=== PATIENT | female | born 1945 | race Caucasian/White ===

== ENCOUNTER 2016-12-01 12:52 | Observation (INO) | payer MEDICARE, OTHER ==
[2016-12-01] VITALS (11 sets, daily range): BP systolic 90–138; BP diastolic 48–78; PULSE 72–112; RESP 16–20; TEMP 96.6–98.4; O2SAT 96–98
[~2016-12-01] VITALS: Ht 170.2 cm; Wt 62.1 kg
[2016-12-01] MEDS ORDERED: OCUVTAB4 PO (13:06)
[2016-12-01] MEDS ORDERED: LOSA25TA PO (13:06)
[2016-12-01] MEDS ORDERED: OMEP40CA2 PO (13:06)
[2016-12-01] MEDS ORDERED: ASPI81CH37 CHEW (13:06)
--- NOTE | 2016-12-01 13:26 | PD ---
HPI Chief Complaint: Chest Pain Time Seen by Provider: 13:00 Travel History International Travel<30 days: No Contact w/Intl Traveler<30days: No Traveled to known affect area: No History of Present Illness HPI C/O CHEST PRESSURE, MIDLINE, NONRADIATING, HAS HAD IT ALL DAY AND NOW SEEMS TO GET WORSE WITH DEEP BREATHS...DENIES COUGH/FEVER/DIAPHORESIS/N/V/...STATES THAT SHE HAS FIBROMUSCULAR DYSPLASIA AND HAS BEEN TOLD OF INCREASE RISK OF ANEURYSM...STATES FAMILY H/O PFSH Past Medical History Hypertension: Yes Medical other: Yes (FIBROMUSCULAR DS) Neurologic: Yes (NEUROPATHY) Past Surgical History Eye Surgery: Yes (X4) Hysterectomy: Yes Tonsillectomy: Yes Other Surgery: Yes (FIBROIDS) Social History Alcohol Use: No Tobacco Use: No Substance Use: No Allergies-Medications (Allergen,Severity, Reaction): Coded Allergies: Gantrisin (Verified Allergy, Unknown, 12/01/16) Sulfa (Verified Allergy, Unknown, 12/01/16) Reported Meds & Prescriptions Reported Meds & Active Scripts Active Reported Preservision Areds (Multiple Vitamins W/ Minerals) 1 Tab Unknown Dose PO DAILY Omeprazole 40 Mg Cap 40 Mg PO DAILY Losartan (Losartan Potassium) 25 Mg Tab 12.5 Mg PO DAILY Aspirin Low Dose (Aspirin) 81 Mg Chew 81 Mg CHEW DAILY Review of Systems Except as stated in HPI: all other systems reviewed are Neg Cardiovascular: Positive: Chest Pain or Discomfort Physical Exam Narrative GENERAL: SKIN: Warm and dry. HEAD: Atraumatic. Normocephalic. EYES: Pupils equal and round. No scleral icterus. No injection or drainage. ENT: No nasal bleeding or discharge. Mucous membranes pink and moist. NECK: Trachea midline. No JVD. CARDIOVASCULAR: Regular rate and rhythm. RESPIRATORY: No accessory muscle use. Clear to auscultation. Breath sounds equal bilaterally. GASTROINTESTINAL: Abdomen soft, non-tender, nondistended. Hepatic and splenic margins not palpable. MUSCULOSKELETAL: Extremities without clubbing, cyanosis, or edema. No obvious deformities. NEUROLOGICAL: Awake and alert. No obvious cranial nerve deficits. Motor grossly within normal limits. Five out of 5 muscle strength in the arms and legs. Normal speech. PSYCHIATRIC: Appropriate mood and affect; insight and judgment normal. Data Data Last Documented VS Vital Signs Date Time Temp Pulse Resp B/P Pulse Ox O2 Delivery O2 Flow Rate FiO2 12/01/16 15:43 80 18 97/48 98 12/01/16 14:07 Nasal Cannula 2 12/01/16 13:01 98.4 Orders Electrocardiogram (12/01/16 13:00) B-Type Natriuretic Peptide (12/01/16 13:00) Ckmb (Isoenzyme) Profile (12/01/16 13:00) Complete Blood Count With Diff (12/01/16 13:00) Comprehensive Metabolic Panel (12/01/16 13:00) D-Dimer (12/01/16 13:00) Prothrombin Time / Inr (Pt) (12/01/16 13:00) Act Partial Throm Time (Ptt) (12/01/16 13:00) Troponin I (12/01/16 13:00) Lipase (12/01/16 13:00) Chest, Single Ap (12/01/16 13:00) Ecg Monitoring (12/01/16 13:00) Bilateral Bp Monitoring (12/01/16 13:00) Iv Access Insert/Monitor (12/01/16 13:00) Oximetry (12/01/16 13:00) Oxygen Administration (12/01/16 13:00) Ct Pulmonary Angiogram (12/01/16 13:18) Ct Abd/Pel W Iv Contrast(Rout) (12/01/16 13:18) Morphine Inj (Morphine Inj) (12/01/16 13:45) Ondansetron Inj (Zofran Inj) (12/01/16 13:45) CKMB (12/01/16 14:15) CKMB% (12/01/16 14:15) Iohexol 350 Inj (Omnipaque 350 Inj) (12/01/16 16:06) Labs Laboratory Tests Test 12/01/16 12/01/16 13:15 14:15 White Blood Count 6.7 TH/MM3 Red Blood Count 4.40 MIL/MM3 Hemoglobin 13.1 GM/DL Hematocrit 39.6 % Mean Corpuscular Volume 90.0 FL Mean Corpuscular Hemoglobin 29.6 PG Mean Corpuscular Hemoglobin 32.9 % Concent Red Cell Distribution Width 13.5 % Platelet Count 248 TH/MM3 Mean Platelet Volume 8.4 FL Neutrophils (%) (Auto) 65.7 % Lymphocytes (%) (Auto) 18.0 % Monocytes (%) (Auto) 12.5 % Eosinophils (%) (Auto) 0.6 % Basophils (%) (Auto) 3.2 % Neutrophils # (Auto) 4.5 TH/MM3 Lymphocytes # (Auto) 1.2 TH/MM3 Monocytes # (Auto) 0.8 TH/MM3 Eosinophils # (Auto) 0.0 TH/MM3 Basophils # (Auto) 0.2 TH/MM3 CBC Comment DIFF FINAL Differential Comment Prothrombin Time 10.7 SEC Prothromb Time International 1.0 RATIO Ratio Activated Partial 27.3 SEC Thromboplast Time D-Dimer Quantitative (PE/DVT) 0.34 MG/L FEU B-Type Natriuretic Peptide 70 PG/ML Sodium Level 141 MEQ/L Potassium Level 4.7 MEQ/L Chloride Level 107 MEQ/L Carbon Dioxide Level 28.0 MEQ/L Anion Gap 6 MEQ/L Blood Urea Nitrogen 18 MG/DL Creatinine 0.83 MG/DL Estimat Glomerular Filtration 67 ML/MIN Rate Random Glucose 93 MG/DL Calcium Level 9.1 MG/DL Total Bilirubin 0.8 MG/DL Aspartate Amino Transf 17 U/L (AST/SGOT) Alanine Aminotransferase 23 U/L (ALT/SGPT) Alkaline Phosphatase 62 U/L Total Creatine Kinase 109 U/L Creatine Kinase MB 1.7 NG/ML Troponin I LESS THAN 0.02 NG/ML Total Protein 7.4 GM/DL Albumin 3.8 GM/DL Lipase 195 U/L [facility] Medical Decision Making Medical Screen Exam Complete: Yes Emergency Medical Condition: Yes Medical Record Reviewed: Yes Differential Diagnosis PE V AK V PNA V AORTIC DISSECTION/ANEURYSM Narrative Course PER CXR NO PNA, BASED ON CT NO PE, NO AORTIC DISSECTION/ANEURYSM NOTED. FIRST SET OF CARDIAC ENZYMES ARE NEG. WILL ADMIT TO [facility] FOR OBSERVATION CP R/O [place] Diagnosis Primary Impression: Chest pain, rule out acute myocardial infarction Condition: Stable Tigre Snyder MD Dec 01, 2016 13:26
[2016-12-01 13:33] LABS: AUTOMATED NEUTROPHIL # 4.5 TH/MM3 (1.8-7.7); BASOPHIL # 0.2 TH/MM3 (0-0.2); BASOPHIL % 3.2 % (0.0-2.0); EOSINOPHIL % 0.6 % (0.0-4.0); HEMATOCRIT 39.6 % (35.0-46.0); HEMO FLAGS DIFF FINAL; LYMPHOCYTE # 1.2 TH/MM3 (1.0-4.8); MEAN CORPUSCULAR HEMOGLOBIN 29.6 PG (27.0-34.0); MEAN CORPUSCULAR HGB CONC 32.9 % (32.0-36.0); MONO % 12.5 % (0.0-8.0); NEUT % 65.7 % (16.0-70.0); PLATELET COUNT 248 TH/MM3 (150-450); RED CELL DISTRIBUTION WIDTH 13.5 % (11.6-17.2); WHITE BLOOD COUNT 6.7 TH/MM3 (4.0-11.0)
[2016-12-01 13:44] LABS: APTT (PATIENT) 27.3 SEC (24.3-30.1); PROTHROMBIN TIME - PATIENT 10.7 SEC (9.8-11.6)
[2016-12-01] MEDS ORDERED: MORPHINE SULFATE 4 MG/ML INJ IV PUSH ONE (13:45)
[2016-12-01] MEDS ORDERED: ONDANSETRON HCL 4 MG/2 ML VIAL IV PUSH ONE (13:45)
--- NOTE | 2016-12-01 13:51 | RADHPO ---
EXAM DATE/TIME: 12/01/2016 13:42 [facility] COMPARISON: No previous studies available for comparison. INDICATIONS : Chest pains MEDICAL HISTORY : None. SURGICAL HISTORY : None. ENCOUNTER: Initial ACUITY: 2 days PAIN SCORE: 8/10 LOCATION: Bilateral chest FINDINGS: Portable AP view of the chest demonstrates a normal-sized cardiac silhouette. No effusion, consolidat ion, or pneumothorax is visualized. There is linear atelectasis versus scar at the left lung base. Th e bones and soft tissues demonstrate no acute abnormality. CONCLUSION: No acute cardiopulmonary abnormality is identified. Joselo Acosta MD on December 01, 2016 at 13:48 Board Certified Radiologist. This report was verified electronically.
[2016-12-01 14:58] LABS: CHLORIDE 107 MEQ/L (98-107); POTASSIUM 4.7 MEQ/L (3.5-5.1); SODIUM (NA) 141 MEQ/L (136-145)
[2016-12-01 15:02] LABS: ANION GAP 6 MEQ/L (5-15); BLOOD UREA NITROGEN 18 MG/DL (7-18)
[2016-12-01 15:05] LABS: ALT (GPT) 23 U/L (10-53); AST (GOT) 17 U/L (15-37); GLOMERULAR FILTRATION RATE 67 ML/MIN (>89)
[2016-12-01 15:07] LABS: TOTAL BILIRUBIN ADULT 0.8 MG/DL (0.2-1.0)
[2016-12-01 15:08] LABS: ALKALINE PHOSPHATASE 62 U/L (45-117); CREATINE KINASE 109 U/L (26-192)
[2016-12-01 15:20] LABS: CKMB 1.7 NG/ML (0.5-3.6)
--- NOTE | 2016-12-01 16:05 | RADHPO ---
EXAM DATE/TIME: 12/01/2016 15:23 [facility] COMPARISON: No previous studies available for comparison. INDICATIONS : Heaviness in chest and shortness of breath with inhalation. IV CONTRAST: 100 cc Omnipaque 350 (iohexol) IV RADIATION DOSE: 28.14 CTDIvol (mGy) MEDICAL HISTORY : Fibroids SURGICAL HISTORY : Hysterectomy. ENCOUNTER: Initial ACUITY: 2 days PAIN SCALE: 6/10 LOCATION: Bilateral chest TECHNIQUE: Volumetric scanning of the chest was performed using a pulmonary embolism protocol MIP images were re constructed. Using automated exposure control and adjustment of the mA and/or kV according to patien t size, radiation dose was kept as low as reasonably achievable to obtain optimal diagnostic quality images. FINDINGS: PULMONARY ARTERIES: Pulmonary arteries are visualized to the proximal subsegmental level without evidence for intralumina l filling defect to suggest pulmonary artery embolism. LUNGS: Mild biapical scarring. Minimal left lower lobe scarring. No significant focal parenchymal normality. PLEURAE: There is no pleural thickening or pleural effusion. MEDIASTINUM: There is good visualization of the great vessels of the middle mediastinum. No evidence of mediastin al or hilar adenopathy/mass. Trace pericardial effusion. MUSCULOSKELETAL: Within normal limits for patient age. MISCELLANEOUS: The visualized upper abdominal organs demonstrate no acute abnormality. CONCLUSION: 1. No CT evidence for pulmonary artery embolism to the subsegmental level. 2. Minimal biapical and left lower lobe scarring. 3. Otherwise, unremarkable CT examination of the thorax. Adan Wilder MD on December 01, 2016 at 15:58 Board Certified Radiologist. This report was verified electronically.
[2016-12-01] MEDS ORDERED: IOHEXOL 350 MG/ML 10 ML VIAL (for RAD DIAG) IV ONE (16:06)
--- NOTE | 2016-12-01 16:15 | RADHPO ---
EXAM DATE/TIME: 12/01/2016 15:23 [facility] COMPARISON: No previous studies available for comparison. INDICATIONS : Chest heaviness, and shortness of breath looking for dissection vs PE. IV CONTRAST: 100 cc Omnipaque 350 (iohexol) IV ; Cumulative dose for multiple exams. ORAL CONTRAST: No oral contrast ingested. RADIATION DOSE: 34.23 CTDIvol (mGy) ; Combined studies - Thorax/Abdomen/Pelvis MEDICAL HISTORY : None SURGICAL HISTORY : None. ENCOUNTER: Initial ACUITY: 2 days PAIN SCALE: 6/10 LOCATION: Bilateral abdomen TECHNIQUE: Volumetric scanning of the abdomen and pelvis was performed. Using automated exposure control and ad justment of the mA and/or kV according to patient size, radiation dose was kept as low as reasonably achievable to obtain optimal diagnostic quality images. FINDINGS: Thoracic aorta: The aortic root is normal in caliber. The tubular portion of the ascending aorta is normal in size. M aximum dimension is 3 cm. The arch is normal in caliber throughout its course with a maximum dimensio n of 2.7 CM. There is normal branching of the great vessels from the arch. The origins of the great v essels are widely patent. The descending thoracic aorta is normal in caliber throughout its course me asuring approximately 2.3 cm in maximum dimension. There is no evidence of dissection. The pulmonary circulation: There is good visualization of the pulmonary circulation. No pulmonary embolus is identified. Abdominal aorta: There is visualization of the abdominal aorta throughout its course. The celiac, SMA and renal arteri es are widely patent. The abdominal aorta is normal in caliber. The common iliac, internal iliac and external iliac circulation is widely patent. CT source data: The heart is mildly enlarged. There is no significant hilar, mediastinal or axillary adenopathy. No p ericardial or pleural effusion is seen. The visualized pulmonary parenchyma is clear. The solid organ s of the abdomen are grossly intact by arterial phase imaging. There is no retroperitoneal adenopathy . No free air or free fluid is seen. The loops of small and large bowel are unremarkable. There are d egenerative changes throughout the spine. CONCLUSION: 1. The thoracic and abdominal aorta are normal in caliber without evidence of dissection. 2. No pulmonary embolus identified. Kiet Chapa MD on December 01, 2016 at 16:07 Board Certified Radiologist. This report was verified electronically.
[2016-12-01] MEDS ORDERED: MORPHINE SULFATE 4 MG/ML INJ IV PRN (16:45)
[2016-12-01] MEDS ORDERED: ONDANSETRON HCL 4 MG/2 ML VIAL IV PRN (16:45)
[2016-12-01] MEDS ORDERED: ACETAMINOPHEN/HYDROcodone 325 MG/7.5 MG TAB PO PRN (16:45)
[2016-12-01] MEDS ORDERED: SODIUM CHLORIDE 0.9% FLUSH 10 ML FLUSH IV FLUSH PRN (16:45)
[2016-12-01] MEDS ORDERED: ACETAMINOPHEN 500 MG CPLT PO PRN (16:45)
[2016-12-01] MEDS ORDERED: NITROGLYCERIN 0.4 MG SL 25 TABS/BTL SL PRN (16:45)
[2016-12-01 17:37] LABS: CREATINE KINASE 105 U/L (26-192)
[2016-12-01 17:49] LABS: CKMB 1.2 NG/ML (0.5-3.6)
--- NOTE | 2016-12-01 17:54 | HHI.HP ---
[facility] Service [place] [facility] Primary Care Physician Non-Staff Admission Diagnosis CP R/O [place] Diagnoses: (1) Chest pain Diagnosis: Principal (2) GERD (gastroesophageal reflux disease) Diagnosis: Principal Chief Complaint: chest pain Travel History International Travel<30 Days: No Contact w/Intl Traveler <30 Da: No Traveled to Known Affected Are: No History of Present Illness 71-year-old female with history of MVP vs mitral regurgitation, fibromuscular dysplasia, Mnire's disease, and neuropathy presents with complaint of chest pain. Patient states she awoke at 6:45 AM yesterday morning with chest pressure, substernal. She states it woke her up from sleep. She rates the pain 8-9/10 at that time. She states she was lying on her back when it occurred. She states it worsened when she turned onto her right side. She states it lasted about 5 minutes and then she sat up and it went away but she started experience pleuritic, dull ache type pain over the chest. She states the pressure never returned but she had that other discomfort all day. She states she had some jaw pain this morning from lying in an odd position but denies radiation of chest pain. Denies any associated dizziness, diaphoresis, sob, nausea, or vomiting. She states the morphine helped the pleuritic/dull ache pain which went from a 2/10 to no pain currently. She admits to history of acid reflux stating that she had an endoscopy and colonoscopy in 2013 revealing a hiatal hernia and esophagitis. She states she is supposed to sleep in elevated position but cannot due to low back pain. She states she also has been recently eating more acidic foods, stating she had raspberry sorbet and salad with tomatoes etc. She states yesterday she took 20 mg omeprazole in the morning and took it again today, but prior to this had not been taking omeprazole since March or April stating that it makes her constipated. She states it did help quiet down the gurgling. She is also chronically hoarse. She denies any fevers or chills but states she felt weak yesterday. She had some upper respiratory symptoms and conjunctivitis in October but denies any currently. She states that she has some leg swelling worse on the left than right leg. Patient was diagnosed with fibromuscular dysplasia in 2007, denies having any actual aneurysms. She has had numerous studies performed regarding this. She states she has bruits in her carotid arteries worse on the left but this is being monitored and she had a carotid artery ultrasound in the last few months. She also states she has been diagnosed either with mitral valve prolapse or mitral regurgitation depending on the physician she speaks with. She states she has symptoms with her mitral valve prolapse stating she had 2 strong episodes a couple weeks ago including palpitations heart "skipping" and presyncope, but also states she was under a lot of stress at that time. No recent syncope. Her doctor is aware of these symptoms. States she was on atenolol for 20 years. No history of CHF. States old myocardial infarction is written in her medical records. She has never had any stents or cardiac surgery. She states she does not have high cholesterol on lab work, but was told she has plaques in her arteries and hence why she is on atorvastatin a few times a week. She also takes blood pressure medication for her FMD but does not otherwise have hypertension. Patient follows with a vascular surgeon in [facility] and a panel edge sealer in [place]. Last stress test was in 2010, and she has had 3 or 4 treadmill tests total in the past. Review of Systems Constitutional: DENIES: Diaphoretic episodes, Fever, Chills, Dizziness Eyes: DENIES: Blurred vision Ears, nose, mouth, throat: DENIES: Throat pain Respiratory: DENIES: Cough, Shortness of breath Cardiovascular: COMPLAINS OF: Chest pain, Palpitations, Lower Extremity Edema Gastrointestinal: COMPLAINS OF: Constipation, DENIES: Abdominal pain, Diarrhea , Nausea, Vomiting Genitourinary: DENIES: Urinary frequency, Dysuria Musculoskeletal: COMPLAINS OF: Back pain Integumentary: DENIES: Rash Neurologic: COMPLAINS OF: Headache Except as stated in HPI: all other systems reviewed are Neg Past Family Social History Past Medical History Fibromuscular dysplasia diagnosed in June 2007 GERD, esophagitis Neuropathy Carotid bruits Possible old [place] Past Surgical History Eye surgery 4 Hysterotomy Tonsillectomy Fibroid surgery Reported Medications Preservision Areds (Multiple Vitamins W/ Minerals) 1 Tab Unknown Dose PO DAILY Omeprazole 40 Mg Cap 40 Mg PO DAILY Losartan (Losartan Potassium) 25 Mg Tab 12.5 Mg PO HS Aspirin Low Dose (Aspirin) 81 Mg Chew 81 Mg CHEW DAILY Calcium and Magnesium OTC Atorvastatin unknown dose 3 times weekly Allergies: Coded Allergies: Gantrisin (Verified Allergy, Unknown, 12/01/16) Sulfa (Verified Allergy, Unknown, 12/01/16) Family History Mother: Hypertension, aortic aneurysm which "tore away from wall" in her 90s; diagnosed with diabetes at age 92. Paternal grandfather, great-grandfather, and grandfather's sister with strokes. Brother: Diabetes Sister: Hypertension No other family members have been diagnosed with fibromuscular dysplasia. Social History Currently lives in [place]. Drinks half a glass of wine a couple times per month socially. Denies cigarette smoking or tobacco use. Denies history of illicit drug use. Physical Exam Vital Signs Vital Signs Date Time Temp Pulse Resp B/P Pulse Ox O2 Delivery O2 Flow Rate FiO2 12/01/16 17:37 82 18 99/63 96 12/01/16 16:39 75 20 90/49 98 12/01/16 15:43 80 18 97/48 98 12/01/16 14:07 97 20 104/61 98 Nasal Cannula 2 12/01/16 13:22 92 20 116/58 96 107/57 12/01/16 13:06 97 12/01/16 13:01 98.4 99 20 138/78 98 Physical Exam GENERAL: This is a well-nourished, well-developed patient, in no apparent distress. SKIN: No rashes, ecchymoses or lesions. Warm and dry. HEAD: Atraumatic. Normocephalic. EYES: Pupils equal round. ENT: Throat without erythema or exudate. Uvula midline. Airway patent. NECK: Trachea midline. Mild right sided carotid bruit. No audible bruit on the left. CHEST: Mild tenderness to palpation over the left lower sternum. CARDIOVASCULAR: Normal rate and regular rhythm. Click vs premature contractions auscultated over the aortic region. RESPIRATORY: Clear to auscultation. Breath sounds equal bilaterally. No wheezes , rales, or rhonchi. GASTROINTESTINAL: Mild tenderness over the epigastric region. Normoactive bowel sounds. Abdomen soft, non-tender, nondistended. No guarding. MUSCULOSKELETAL: No lower extremity edema bilaterally. No calf pain bilaterally. BACK: No CVA tenderness bilaterally. No tenderness to palpation over the spine or paraspinal muscles. NEUROLOGICAL: Awake and alert. 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 Normal speech. PSYCHIATRIC: Depressed affect. Slightly anxious mood. Normal behavior. Insight and judgement normal. Laboratory Laboratory Tests Test 12/01/16 12/01/16 12/01/16 13:15 14:15 17:05 White Blood Count 6.7 Red Blood Count 4.40 Hemoglobin 13.1 Hematocrit 39.6 Mean Corpuscular Volume 90.0 Mean Corpuscular Hemoglobin 29.6 Mean Corpuscular Hemoglobin 32.9 Concent Red Cell Distribution Width 13.5 Platelet Count 248 Mean Platelet Volume 8.4 Neutrophils (%) (Auto) 65.7 Lymphocytes (%) (Auto) 18.0 Monocytes (%) (Auto) 12.5 Eosinophils (%) (Auto) 0.6 Basophils (%) (Auto) 3.2 Neutrophils # (Auto) 4.5 Lymphocytes # (Auto) 1.2 Monocytes # (Auto) 0.8 Eosinophils # (Auto) 0.0 Basophils # (Auto) 0.2 CBC Comment DIFF FINAL Differential Comment Prothrombin Time 10.7 Prothromb Time International 1.0 Ratio Activated Partial 27.3 Thromboplast Time D-Dimer Quantitative (PE/DVT) 0.34 B-Type Natriuretic Peptide 70 Sodium Level 141 Potassium Level 4.7 Chloride Level 107 Carbon Dioxide Level 28.0 Anion Gap 6 Blood Urea Nitrogen 18 Creatinine 0.83 Estimat Glomerular Filtration 67 Rate Random Glucose 93 Calcium Level 9.1 Total Bilirubin 0.8 Aspartate Amino Transf 17 (AST/SGOT) Alanine Aminotransferase 23 (ALT/SGPT) Alkaline Phosphatase 62 Total Creatine Kinase 109 105 Creatine Kinase MB 1.7 1.2 Troponin I LESS THAN 0.02 LESS THAN 0.02 Total Protein 7.4 Albumin 3.8 Lipase 195 Result Diagram: 12/01/16 1315 12/01/16 [address] Angiography 12/01/16 1318 Signed Impressions: Service Date/Time: Thursday, December 01, 2016 15:23 - CONCLUSION: 1. No CT evidence for pulmonary artery embolism to the subsegmental level. 2. Minimal biapical and left lower lobe scarring. 3. Otherwise, unremarkable CT examination of the thorax. Adan Wilder MD Abdomen/Pelvis CT 12/01/16 1318 Signed Impressions: Service Date/Time: Thursday, December 01, 2016 15:23 - CONCLUSION: 1. The thoracic and abdominal aorta are normal in caliber without evidence of dissection. 2. No pulmonary embolus identified. Kiet Chapa MD Chest X-Ray 12/01/16 1300 Signed Impressions: Service Date/Time: Thursday, December 01, 2016 13:42 - CONCLUSION: No acute cardiopulmonary abnormality is identified. Joselo Acosta MD Assessment and Plan Assessment and Plan 71-year-old female with: Chest pain: Started with pressure then followed by pleuritic and dull ache but also has pain extending from the hiatal region downward when she turns to the right and lies down. EKG #1 and #2 personally interpreted with sinus rhythm and no evidence of ischemia. Troponin less than 0.02. Chest x-ray personally interpreted with no evidence acute disease. -Serial EKGs and enzymes -Patient denies taking any aspirin today. Continue baby aspirin, enteric- coated daily. -Nitroglycerin/[place]/morphine prn chest pain as long as blood pressure tolerates. -Telemetry -Patient will be required to undergo a nuclear stress test due to history of mitral valve prolapse and Mnire's disease. Will order once ACS is ruled out. -Continue statin if patient can verify dose MVP vs mitral regurg per patient: We do not have records. She does have a possible MVP murmur on exam. She does get symptoms with this including palpitations and presyncope but states she takes [id number] calcium and magnesium which control this. She denies any current dizziness. GERD: H/o hiatal hernia and esophagitis. Patient denies having any burning sensation but states she does not get regular heartburn with her GERD. She does have chronic hoarseness and gets a feeling in her upper throat that she has to clear. She has mild epigastric pain on exam which may be chronic. Lipase is normal. She gets pains in left abdomen which are relieved with omeprazole, but states omeprazole gives her constipation. -Patient will be continued on omeprazole 40 mg by mouth daily -Will give one dose of Pepcid now with as needed Maalox for acute dyspepsia -Will start the patient on Colace FMD: Patient has had appropriate follow-up with outpatient physicians. -Continuous Losartan tomorrow morning provided no significant hypotension Carotid bruits: Outpatient physician following. Recent carotid US per patient. DVT prevention: SCDs Had extensive discussion with patient regarding her medical history and nuclear stress testing. She is nervous regarding Lexiscan. To readdress in the am. Discussed Condition With patient, Tuyet Montes Dec 01, 2016 17:54
[2016-12-01] MEDS ORDERED: ALUMINUM/MAGNESIUM/SIMETH 30 ML CUP PO PRN (18:00)
[2016-12-01] MEDS ORDERED: PILL SPLITTER OTHER PRN (18:00)
[2016-12-01] MEDS ORDERED: FAMOTIDINE 20 MG TAB PO ONE (18:30)
[2016-12-01] MEDS: ASPIRIN EC 81 MG TABEC PO SCH (20:38)
[2016-12-01] MEDS: DOCUSATE SODIUM 100 MG CAP PO SCH (20:38)
[2016-12-01] MEDS: SODIUM CHLORIDE 0.9% FLUSH 10 ML FLUSH IV FLUSH SCH (20:39)
[2016-12-01 20:53] LABS: CREATINE KINASE 99 U/L (26-192)
[2016-12-01] MEDS ORDERED: FAMOTIDINE 20 MG TAB PO SCH (21:00)
[2016-12-02] VITALS: BP 101/52; PULSE 70; RESP 16; TEMP 96.1; O2SAT 96
[2016-12-02 04:17] VITALS: BP 120/73; PULSE 76; RESP 16; TEMP 97.8; O2SAT 96
[2016-12-02 06:45] VITALS: PULSE 101
--- NOTE | 2016-12-02 07:44 | HHI.PR ---
Subjective Remarks Follow-up for chest pain, GERD. Patient states she has been up since 2:30 this morning stating she has a headache and neck pain and low back pain and cramps in her legs. She again admits to having pain from the mid sternum straight downward when she lies on her right side. I asked her if this occurs on her left side but she states she cannot lay on her left side due to Mnire's disease. She states she cannot describe the pain exactly but it feels like a "squishing pressure", but different from the chest pressure she experienced initially. She denies any dizziness, palpitations, or shortness of breath, but states she feels like her heart is working harder than normal. She also complains that she has not eaten much in the past 2 days but had dinner last night. She had requested bottled water yesterday stating that the local tap water gives her diarrhea but states she did not receive the bottled water until late last night and so she has not drank much and still admits to feeling weak. She states she got the Colace last night. Last bowel movement was Saturday. Objective Vitals Vital Signs Date Time Temp Pulse Resp B/P Pulse Ox O2 Delivery O2 Flow Rate FiO2 12/02/16 04:17 97.8 76 16 120/73 96 12/02/16 00:00 96.1 70 16 101/52 96 12/01/16 20:52 96.6 86 16 118/64 97 12/01/16 20:00 72 12/01/16 18:49 112 12/01/16 18:05 97.6 74 18 123/60 98 12/01/16 17:37 82 18 99/63 96 12/01/16 16:39 75 20 90/49 98 12/01/16 15:43 80 18 97/48 98 12/01/16 14:07 97 20 104/61 98 Nasal Cannula 2 12/01/16 13:22 92 20 116/58 96 107/57 12/01/16 13:06 97 12/01/16 13:01 98.4 99 20 138/78 98 I/O 12/01/16 12/01/16 12/01/16 12/02/16 12/02/16 12/02/16 07:00 15:00 23:00 07:00 15:00 23:00 Intake Total 350 ml 0 ml Balance 350 ml 0 ml Intake Oral 350 ml 0 ml IV Total 0 ml # Voids 4 Result Diagram: 12/01/16 1315 12/01/16 1415 Objective Remarks GENERAL: Well-nourished, well-developed patient in no apparent distress standing up at the edge of the bed. SKIN: Warm and dry. CHEST: Reproducible tenderness over the midsternum when patient lying on her right side. CARDIOVASCULAR: Regular rate and rhythm. Occasional extra beat. RESPIRATORY: No accessory muscle use. Clear to auscultation. Breath sounds equal bilaterally. GASTROINTESTINAL: Abdomen soft, non-tender, nondistended. MUSCULOSKELETAL: No notable lower extremity edema. NEUROLOGICAL: Awake and alert. Motor grossly within normal limits.Normal speech. PSYCHIATRIC: Appropriate mood and affect; insight and judgment normal. Urinary Catheter: No Vascular Central Line Catheter: No A/P Problem List: (1) Chest pain ICD Code: R07.9 Status: Acute (2) GERD (gastroesophageal reflux disease) ICD Code: K21.9 Status: Acute (3) Constipation ICD Code: K59.00 Status: Acute Assessment and Plan 71-year-old female with: Chest pain: Started with pressure then followed by pleuritic and dull ache which has resolved but still has persistent discomfort extending from the mid- sternum downward when she lies on her R side. EKGs x 3 personally interpreted with sinus rhythm and no evidence of ischemia. Troponin x 3 less than 0.02. Chest x-ray without acute disease. -Continue baby aspirin, enteric-coated daily. -Nitroglycerin/[place]/morphine prn chest pain as long as blood pressure tolerates. -Telemetry -Lexiscan ordered as patient cannot undergo ETT due to MVP and Mnire's disease MVP (vs mitral regurg per patient): We do not have records. She does get symptoms with this including palpitations and presyncope but states she takes [id number] calcium and magnesium which control this. She denies any current dizziness. -Follow up outpatient GERD: H/o hiatal hernia and esophagitis. Patient denies having any burning sensation but states she does not get regular heartburn sensation with her GERD. She does have chronic hoarseness and gets a feeling in her upper throat that she has to clear. She has mild epigastric pain on exam which may be chronic. Lipase is normal. States omeprazole helps but gives her constipation. Has persistent discomfort extending from the mid-sternum downward when she lies on her R side likely GERD related. -Continue omeprazole 40 mg by mouth daily -S/p one dose of Pepcid yesterday -Maalox prn for acute dyspepsia Constipation: No BM since Saturday. Appears to be chronic; patient attributes to omeprazole use. -Continue Colace bid -Magnesium hydroxide and Senokot ordered as needed FMD: Patient has had appropriate follow-up with outpatient physicians. -Continue Losartan Carotid bruits: Recent carotid US per patient. -Outpatient physician following. FEN: Patient again states she feels weak and has not eaten much over the last 2 days stating she did not drink much last night as she states she can only have bottled water. Since patient remains NPO for testing will start maintenance IV normal saline @ 60 mL/hr as supportive care. DVT prevention: SCDs. Attending Statement The exam, history, and the medical decision-making described in the above note were completed with my assistance as the dictating practitioner. I attest that I had a [id number] encounter with the patient on the same day, and personally performed all of the history, exam, or medical decision making. I reviewed and agree with the plan. Patient seen in room. Appears quite stressed and tearful today. Plan of care discussed with patient who is agreeable to cardiac evaluation. Most likely this is atypical chest pain possibly related to gastrointestinal problems. Patient will need proton pump inhibitor and will need follow-up with her primary care doctor. Likely discharge home if stress testing negative. Tuyet Schulz Dec 02, 2016 07:44 Lucie Chavez MD Dec 02, 2016 09:12
[2016-12-02 08:00] VITALS: BP 93/60; PULSE 85; RESP 20; TEMP 97.5; O2SAT 94
[2016-12-02] MEDS ORDERED: MAGNESIUM HYDROXIDE SUSP 30 ML CUP PO PRN (08:00)
[2016-12-02] MEDS ORDERED: SODIUM CHLOR 0.9% 1000 ML INJ 1,000 ML IV SCH (08:00)
[2016-12-02] MEDS ORDERED: SENNOSIDES 8.6 MG TAB PO PRN (08:00)
[2016-12-02] MEDS: ASPIRIN EC 81 MG TABEC PO SCH (08:38)
[2016-12-02] MEDS: SODIUM CHLORIDE 0.9% FLUSH 10 ML FLUSH IV FLUSH SCH (08:40)
[2016-12-02] MEDS ORDERED: LOSARTAN 25 MG TAB PO SCH (09:00)
[2016-12-02] MEDS ORDERED: ASPIRIN 325 MG TAB PO SCH (09:00)
[2016-12-02] MEDS ORDERED: PANTOPRAZOLE SOD 40 MG DELAYED RELEASE TAB PO SCH (09:00)
[2016-12-02] MEDS ORDERED: REGADENOSON INJ 0.4 MG/5 ML SYR IV ONE (11:17)
[2016-12-02] MEDS ORDERED: AMINOPHYLLINE INJ 250 MG/10 ML VIAL IV ONE (11:41)
[2016-12-02 12:00] VITALS: BP 104/55; PULSE 84; RESP 20; TEMP 96.9; O2SAT 96
--- NOTE | 2016-12-02 12:18 | EKG ---
Date Performed: 12/01/2016 Time Performed: 20:07:32 PTAGE: 71 years EKG: Sinus rhythm POSSIBLE RIGHT VENTRICULAR CONDUCTION DELAY BORDERLINE ECG PREVIOUS TRACING : 12/01/2016 17.02 Compared to prior tracing no significant change DOCTOR: Haja Machado Interpretating Date/Time 12/02/2016 12:14:32
[2016-12-02] MEDS: DOCUSATE SODIUM 100 MG CAP PO SCH (12:22)
--- NOTE | 2016-12-02 12:24 | EKG ---
Date Performed: 12/01/2016 Time Performed: 17:02:36 PTAGE: 71 years EKG: Sinus rhythm POSSIBLE RIGHT VENTRICULAR CONDUCTION DELAY SEPTAL MYOCARDIAL INFARCTION ABNORMAL ECG PREVIOUS TRACING : 12/01/2016 13.01 Compared to prior tracing no significant change DOCTOR: Haja Machado Interpretating Date/Time 12/02/2016 12:21:25
--- NOTE | 2016-12-02 12:30 | EKG ---
Date Performed: 12/01/2016 Time Performed: 13:01:06 PTAGE: 71 years EKG: Sinus rhythm MARKED LEFT AXIS DEVIATION POSSIBLE RIGHT VENTRICULAR CONDUCTION DELAY ABNORMAL ECG NO PREVIOUS TRACING DOCTOR: Haja Machado Interpretating Date/Time 12/02/2016 12:26:26
--- NOTE | 2016-12-02 12:30 | RADHPO ---
EXAM DATE/TIME: 12/02/2016 11:00 [facility] COMPARISON: No previous studies available for comparison. INDICATIONS : Susbternal chest pain radiating to jaw. Angina. DOSE: 25.4 mCi Tc99m Myoview at stress. 8.5 mCi Tc99m Myoview at rest. 0.4 mg Lexiscan STRESS SYMPTOMS: Heart racing, headache and nausea. MEDICATIONS: 1.) 100 mg Aminophylline IV EJECTION FRACTION: > 70% MEDICAL HISTORY : Gastroesophageal reflux disease. Mitral valve prolapse, hiatal hernia and fibromyalgia. SURGICAL HISTORY : Hysterectomy. Tonsillectomy. Fibroids removed and eye surgery. ENCOUNTER: Initial ACUITY: 2 days PAIN SCALE: 4/10 LOCATION: Substernal chest TECHNIQUE: The patient underwent pharmacologic stress with infusion of prescribed dose. Continuous ECG tracing was monitored during stress. Gated SPECT imaging was performed after stress and conventional SPECT i maging was performed at rest. The examination was performed on a SPECT/CT scanner, both attenuation and non-corrected datasets were reviewed. FINDINGS: DISTRIBUTION: The maximum perfused segment at stress is in the anterolateral wall. PERFUSION STUDY: The pattern of perfusion at stress is within normal limits. GATED STUDY: There is intact wall motion and thickening without hypokinetic or dyskinetic segments. CONCLUSION: 1. No reversible perfusion defect to indicate stress-induced myocardial ischemia identified. RISK CATEGORY: Low (<1% Annual Mortality Rate) Kiet Chapa MD on December 02, 2016 at 12:26 Board Certified Radiologist. This report was verified electronically.
[2016-12-02] MEDS ORDERED: PEPCCHW8 PO (13:33)
--- NOTE | 2016-12-02 13:35 | HHI.DCPOC ---
Discharge Care Plan Diagnosis: (1) Chest pain (2) GERD (gastroesophageal reflux disease) (3) Constipation Your Health Problems Are: Chest Pain Goals to Promote Your Health * To prevent worsening of your condition and complications * To maintain your health at the optimal level Directions to Meet Your Goals Take your medications as prescribed Follow your dietary instruction Follow activity as directed Keep your appointments as scheduled Take your immunizations and boosters as scheduled If your symptoms worsen call your PCP, if no PCP go to Urgent Care Center or Emergency Room Smoking is Dangerous to Your Health. Avoid second hand smoke Call the 24-hour hour crisis hotline for domestic abuse at Tuyet Schulz Dec 02, 2016 13:35
--- NOTE | 2016-12-02 14:09 | TR ---
Date Performed: 12/02/2016 Time Performed: 11:26:07 DOCTOR: Pal Simeon DRUG LIST: CLINICAL HISTORY: CHEST PAIN REASON FOR TEST: Chest pain REASON FOR ENDING: OBSERVATION: CONCLUSION: Lexiscan stress test was performed under standard four minute protocol. Radionuclide was injected one minute prior to ending the test. Developed racing of the heart, headache and nausea . Rare PACs were noted. No electrocardiographic abnormalities were present to suggest ischemia. Recie andrew IV aminophylline during recovery which was quick and uneventful with resolution of symptoms. Nucl ear imaging and interpretation are pending. COMMENTS:
== END 2016-12-02 15:04 | disposition home or self-care (01) ==
LOC: PHED 12:52 → PHEDA 16:34 → PH3A 17:56
PROVIDERS: ADMIT Hospitalist; ATTEND Hospitalist
DX: R07.89 Other chest pain (principal); K21.0 Gastro-esophageal reflux disease with esophagitis; I10 Essential (primary) hypertension; K59.00 Constipation, unspecified; G62.9 Polyneuropathy, unspecified; I34.1 Nonrheumatic mitral (valve) prolapse; H81.09 Meniere's disease, unspecified ear; R55 Syncope and collapse; R00.2 Palpitations; R51 Headache; M54.2 Cervicalgia
CPT/HCPCS: 71010; 71275; 74177; 78452; 80053; 82550; 82552; 83690; 83880; 84484; 85025; 85379; 85610; 85730; 93005; 93017; 96374; 96375; 96376; 99285; A9502; G0378; J0280; J2270; J2405; J2785; J7030; Q9967